=== PATIENT | female | born 1965 | race Two or more races ===

== ENCOUNTER 2018-12-08 12:52 | Inpatient (IN) | payer OTHER ==
[~2018-12-08] VITALS: Ht 170.2 cm; Wt 100.2 kg
[~2018-12-08 12:52] MED LIST: SILVER NITRATE APPLICATOR 1 EA BOX TP ONE
--- NOTE | 2018-12-08 13:00 | NUR ---
ADMISSION NOTE PT ARRIVED AT THIS TIME, BROUGHT IN BY WHEELCHAIR VIA SECURITY. PT IS A/O X4, BREATHING EVEN AND UNLABORED ON RA, NO S/S OF PAIN OR DISTRESS NOTED, IV IS PATENT AND INTACT, SAFETY PRECAUTIONS IN PLACE, CALL LIGHT WITHIN REACH, WILL MONITOR ACCORDINGLY.
[2018-12-08] MEDS ORDERED: MAGNESIUM HYDROXIDE 30 ML UDC PO PRN (15:30)
[2018-12-08] MEDS ORDERED: ACETAMINOPHEN 325 MG TABLET PO PRN (15:30)
[2018-12-08] MEDS ORDERED: Z GUARD REMEDY 2 OZ OINT TP PRN (15:30)
[2018-12-08] MEDS ORDERED: MAG HYDROX/AL HYDROX/SIMETH 30 ML UDC PO PRN (15:30)
[2018-12-08] MEDS ORDERED: ZOLPIDEM TARTRATE 5 MG TABLET PO PRN (15:30)
[2018-12-08] MEDS ORDERED: ONDANSETRON HCL/PF 4 MG/2 ML VIAL IVP PRN (15:30)
[2018-12-08 16:00] VITALS: BP 111/69
[2018-12-08] MEDS: IV NS 0.9% 1,000 ML IV PRN (17:36)
[2018-12-08] MEDS: PIPERACILLIN /TAZOBACTAM 4.5 G in IV D5W 50 ML IV SCH (17:46)
[2018-12-08] MEDS ORDERED: FEE PK DOSING 1 MIN EA MC ONE (18:06)
--- NOTE | 2018-12-08 18:20 | NUR ---
RN NOTE PT HAS BEEN VOMITING THE LAST HOUR AND HALF, HOSPITALIST DR. ALANA ZHANG MESSAGED AND HE ORDERED A ONE TIME DOSE OF ZOFRAN TO BE GIVEN AGAIN AT THIS TIME. ORDER IMPLEMENTED AND CARRIED OUT
[2018-12-08] MEDS ORDERED: ONDANSETRON HCL/PF 4 MG/2 ML VIAL IV ONE (18:30)
--- NOTE | 2018-12-08 18:43 | NUR ---
RN CLOSING NOTE PT IN BED AT LOWEST AND LOCKED POSITION WITH SIDE RAILS UP X2, A/OX4, BREATHING IS EVEN AND UNLABORED, PT IS CURRENTLY VOMITING AT THIS WITH MD AWARE AND ONE TIME DOSE OF ZOFRAN ORDERED AND GIVEN, PT WAS NOTED TO HAVE RIGHT BUTTOCK WOUND WITH WOUND CONSULT ORDERED, IV IS PATENT AND INTAC, SAFETY PRECAUTIONS IN PLACE, CALL LIGHT WITHIN REACH, ALL NEEDS ATTENDED TO, WILL ENDORSE TO AUTO GLASS WORKER RN FOR ULYSSES.
[2018-12-08] MEDS ORDERED: VANCOMYCIN 1.5 GM in IV NS 0.9% 500 ML IV ONE (19:00)
[2018-12-08] MEDS ORDERED: VANCOMYCIN 1.5 GM in IV D5W 500 ML IV ONE (19:00)
--- NOTE | 2018-12-08 19:50 | NUR ---
MS PILOT BOAT DECKHAND INITIAL NOTES SEEN PT AWAKE AND ALERT DX OF CELLULITIS COMPLAINING OF ABDOMINAL PAIN AND NAUSEA AND VOMITING. SHE STATED SHE GOT ZOFRAN BUT ITS DOESN'T WORKED. SHE ALSO STATES THAT SHE DOESN'T KNOW IF FROM THE [employer] "[employer]" THAT SHE ATE BEFORE SHE CAME HERE. OFFERED NORCO TABLET FOR HER PAIN OR MAALOX BUT SHE REFUSED IT .SHE WANTS A SHOT . I TOLD HER I WILL CALL THE BEATER HEAD MD TO LET THEM KNOW. NO SIGNS OF ANY ACUTE DISTRESS NOTED. STILL WITH IVF NS AT 75ML/HR.
--- NOTE | 2018-12-08 19:55 | NUR ---
MS LANE NOTES SPOKE TO DR HODGES TO LET HIM KNOW WHAT THE SITUATION AT THIS TIME. READ ALL THE LAB RESULT CAME FROM NOR GOT ORDERED NOTED AND CARRIED OUT. Addendum: 12/08/18 at 2305 by JEREMY MIJARES LVN FROM [facility]
[2018-12-08 20:00] VITALS: BP 155/70
[2018-12-08] MEDS ORDERED: METOCLOPRAMIDE HCL 10 MG/2 ML VIAL IV SCH (20:00)
--- NOTE | 2018-12-08 20:18 | NUR ---
MS ARIANA NOTES REGLAN GIVEN KING IVP ORDERED AND VANCOMYCIN IVP BAG STARTED . ENCOURAGED PT TO HAVE HOB ELEVATED ORDERED FOR ASPIRATION PRECAUTION. WILL CONTINUE MONITORING. PLACE CALL LIGHT AT REACH.
[2018-12-08] MEDS ORDERED: METOCLOPRAMIDE HCL 10 MG/2 ML VIAL IV PRN (20:30)
[2018-12-08] MEDS ORDERED: BENA20TA9 PO (20:31)
[2018-12-08] MEDS ORDERED: CLOP75TA15 PO (20:31)
[2018-12-08] MEDS ORDERED: METO50TA16 PO (20:31)
[2018-12-08] MEDS: HYDROCODONE/APAP 5/325MG 1 EACH TABLET PO PRN (20:34)
--- NOTE | 2018-12-08 20:34 | NUR ---
NUCLEAR INSTRUCTOR/NOTES NORCO TABLET GIVEN PER PT REQUESTED. NO N/V NOTED AT THIS TIME. WILL CONTINUE MONITORING.
[2018-12-08] MEDS ORDERED: GABA-534 PO (21:36)
[2018-12-08] MEDS ORDERED: ATOR80TA PO (21:36)
[2018-12-08] MEDS ORDERED: ASPI-1169 PO (21:36)
[2018-12-08] MEDS ORDERED: OMEG1CAP18 PO (21:36)
--- NOTE | 2018-12-08 21:38 | NUR ---
MS MEAT PRESS OPERATOR NOTES PT AWAKE AND ALERT STATES PAIN STILL THE SAME I ASK QUALITY OF PAIN SHE STATED "I DON'T KNOW, THIS IS THE FIRST TIME I'M HAVING THIS KIND OF ABDOMINAL PAIN. PT HAVING BOWEL MOVEMENT TOO, OFFERED MAALOX BUT SHE'S REFUSING AND INSTEAD ASKING FOR STRONG PAIN MEDICATION . I TOLD HER I WILL NOTIFY THE MD FOR HER CONCERNED.
--- NOTE | 2018-12-08 23:30 | NUR ---
MS ARIANA NOTES NOTIFIED KING FORBES TEXTING BY CHARGE NURSE , PATIENT STILL HAVING SEVERE ABDOMINAL PAIN CRYING OUT LOUD . NO SIGNS OF ANY ACUTE DISTRESS NOTED.
--- NOTE | 2018-12-09 00:15 | NUR ---
MS ARIANA NOTEES PT CALLED AGAIN AND STILL COMPLAINING ABDOMINAL PAIN ,STARTED FROM EPIGASTRIC MOVING ALL OVER HER ABDOMEN , SHE FEEL NAUSEA BUT NOTHING TO VOMIT AND SHE INSISTED AND SAYING SHE WANTS TO SEE A DOCTOR AND IF NO DOCTORS SHE WANTS TO SPEAK TO THE DISPLAY TRIMMER OR CHIP FRIER. CHARGED NURSE RUPA SPOKE TO HER TOO TO CALMED HER DOWN. OFFERED ANOTHER NORCO TO RELIEVED THE PAIN BUT PT REFUSING AND INSISTING SHE WANTS PAIN SHOT.
--- NOTE | 2018-12-09 00:20 | NUR ---
MS LANE NOTES NURSING MANAGER FRONT OFFICE BIRGIT SPOKE TO HER THEN NOTIFIED THE DOCTOR FOR PT CONCERN.
--- NOTE | 2018-12-09 00:45 | NUR ---
MS ARIANA NOTES' SPOKE TO DR HODGES AND HE ORDERED STAT KUB. NOTIFIED RADIOLOGY DEPT. WAITING FOR THE RESULT. ZOSYN IVP BAG HUNG BY ANOTHER NURSE ORDERED.
[2018-12-09] MEDS: PIPERACILLIN /TAZOBACTAM 4.5 G in IV D5W 50 ML IV SCH ×2 (01:03→05:58)
--- NOTE | 2018-12-09 02:25 | NUR ---
MS CUSTOMER GREETER NOTES NOTIFIED DR HODGES REGARDING THE RESULT OF KUB . WAITING FOR ORDERS.
--- NOTE | 2018-12-09 02:51 | NUR ---
MS PHOTOENGRAVING SKETCH MAKER NOTES PT CALLED AGAIN CRYING HOLDING HER ABDOMEN AND COMPLAINING OF SEVERE ABDOMINAL PAIN . NO N/V NOTED AT THIS TIME. OFFERED NORCO TABLET BUT SHE INSISTED TO HAVE STRONG PAIN MEDICATION TO KNOCK HER DOWN. SPOKE TO HER THAT I JUST CALLED AIRFRAME AND POWERPLANT MECHANIC MD TO LET HIM KNOW THE RESULT OF STAT KUB STILL WAITING FOR ORDER.
--- NOTE | 2018-12-09 03:00 | NUR ---
MS ARIANA NOTES DR HODGES CALLED BACK , READ THE RESULT OF KUB TO HIM AND TOLD HIM THAT PT STILL ON SEVERE ABDOMINAL PAIN BUT NO N/V AT THIS TIME. GOT ORDERED NOTED AND CARRIED
--- NOTE | 2018-12-09 03:18 | NUR ---
MS RN NOTES PAIN MANAGEMENT C/O UPPER MID ABDOMINAL PAIN,SCREAMING,CRYING,MEDICATED WITH MORPHINE 1MG IV X 1DOSE ORDERED FOR SEVERE PAIN.WILL MONITOR FOR RELIEF
[2018-12-09] MEDS ORDERED: MORPHINE SULFATE INJ 2 MG/ML DISP.SYRIN IV ONE (03:30)
--- NOTE | 2018-12-09 04:00 | NUR ---
MS BAGGAGE CLERK NOTES PT SLEEPING AT THIS TIME AFTER MORPHINE GIVEN ORDERED. IVF NS AT 75ML/HR STILL INFUSING . KEPT HER WARM AND COMFORTABLE AT ALL TIMES. WILL CONTINUE MONITORING. PLACE CALL LIGHT AT REACH.
[2018-12-09] MEDS ORDERED: LIDOCAINE 1%-EPI 1:200,000 SDV 10 ML VIAL IJ ONE (05:00)
--- NOTE | 2018-12-09 06:08 | NUR ---
MS ARIANA NOTES PT WOKE UP WHILE HUNG THE ZOSYN IVP BAG BY ANOTHER NURSE. MRSA SWAB ALSO DONE. PT ASKING FOR ICE CHIPS , TALKED TO HER THAT SHE NEEDS TO BE NPO BECAUSE OF HER CT OF ABDOMEN /PELVIS WITHOUT CONTRAST AND IF SHE'S GETTING ICE CHIPS NOW ,POSSIBLE IT WILL TRIGGER HER ABDOMINAL PAIN AND N/V WELL. PT UNDERSTOOD WELL AND SHE JUST CLOSED HER EYES. KEPT HER WARM AND COMFORTABLE AT ALL TIMES. PLACE CALL LIGHT AT REACH.
--- NOTE | 2018-12-09 07:00 | NUR ---
MS RN NOTES PATIENT IN BED ALERT ORIENTED X 4. NO ACUTE DISTRESS NOTED. BREATHING UNLABORED. NO SOB NOTED. IV ACCESS PATENT AND INTACT, NO REDNESS OR SWELLING NOTED. SAFETY MEASURES IN PLACE. CALL LIGHT WITHIN REACH. WILL CONTINUE TO MONITOR ACCORDINGLY.
[2018-12-09 07:10] LABS: BASOPHILS % (AUTO) 0.2 % (0.0-2.0); EOSINOPHILS % (AUTO) 0.2 % (0.0-6.0); HEMATOCRIT 35 % (33-45); HEMOGLOBIN 11.9 g/dL (11.5-14.8); LYMPHOCYTES % (AUTO) 6.2 % (20.0-44.0); MEAN CORPUSCULAR HGB CONC 34 g/dl (31.0-36.0); MEAN CORPUSCULAR VOLUME 98 fL (82-100); MONOCYTES # (AUTO) 1.6 /CMM (0.1-1.30); MONOCYTES % (AUTO) 9.3 % (2.0-12.0); NEUTROPHILS # (AUTO) 14.2 /CMM (1.8-8.9); NEUTROPHILS % (AUTO) 84.1 % (43.0-81.0); PLATELET COUNT (AUTO) 275 /CMM (150-450); RED BLOOD CELL COUNT(AUTO) 3.59 MIL/uL (4.0-5.2); WHITE BLOOD COUNT (AUTO) 16.9 K/uL (4.3-11.0)
--- NOTE | 2018-12-09 07:15 | NUR ---
WOUND CARE CONSULT WOUND CARE RECEIVED CONSULT FOR RIGHT BUTTOCK ABSCESS. WOUND CARE WILL DEFER CONSULT AND TREATMENT PLANS TO PLASTIC SURGICAL TEAM WHO ARE CURRENTLY FOLLOWING. PATIENT WITH EPIFANIO AT 22, WILL SEE PRN.
[2018-12-09 07:20] LABS: CALCIUM, SERUM 8.4 mg/dL (8.5-10.1); CREATININE 0.9 mg/dL (0.6-1.3)
[2018-12-09 07:26] LABS: THYROID STIMULATING HORMONE 0.77 uIU/mL (0.358-3.74)
--- NOTE | 2018-12-09 07:26 | NUR ---
MS SCREEN PRINTING EQUIPMENT SETTER CLOSING NOTES PT BACK TO REST AFTER MORNING CARE DOEN SHE WILL ABLE TO AMBULATE NOW. NO SIGNS OF ANY DISCOMFORT OR ANY ACUTE DISTRESS NOTED AT THIS TIME. ALL DUE MEDS GIVEN AND ALL NEEDS MET. CALMED HER DOWN AFTER MORPHINE 1 MG GIVEN EARLIER. NO N/V NOTED WELL. IVF NA AT 75ML/HR STILL INFUSING . KEPT HER WARM AND COMFORTABLE AT ALL TIMES. PLACE CALL LIGHT AT REACH .ENDORSE TO AM NURSE FOR CONTINUITY OF CARE.
[2018-12-09 07:51] LABS: POTASSIUM 2.8 mmol/L (3.5-5.1)
[2018-12-09 08:00] VITALS: BP 144/70
[2018-12-09] MEDS: VANCOMYCIN 1 GM in IV D5W 250 ML IV SCH ×2 (08:22→20:07)
[2018-12-09] MEDS ORDERED: POTASSIUM CL. PREMIX PERIPHER. 50 ML IV SCH (10:00)
--- NOTE | 2018-12-09 10:49 | NUR ---
MS RN NOTES NOTIFIED DR ALANA NIELSEN REGARDING CT OF ABDOMEN PELVIS RESULT WITH ORDERS TO CHANGE DIET TO CLEAR LIQUID AND NOTIFY ALSO DR YOU REGARDING RESULT, NOTED AND CARRIED OUT. PATIENT REFUSED POTASSIUM IV ADMINISTRATION DESPITE OF EXPLANATION OF RISK AND BENEFITS , DR ALANA NIELSEN MADE AWARE WITH ORDERS TO CHANGE TO POTASSIUM BY MOUTH, NOTED AND CARRIED OUT.
[2018-12-09] MEDS ORDERED: POTASSIUM CHLORIDE 20 MEQ POWDER PACKET PO ONE (11:00)
[2018-12-09] MEDS: PIPERACILLIN /TAZOBACTAM 3.375 G in IV D5W 100 ML IV SCH ×2 (13:54→21:04)
--- NOTE | 2018-12-09 14:40 | NUR ---
MS RN NOTES SPOKE WITH DR LAGUNA AWARE OF CT OF ABDOMEN PELVIS RESULT WITH NO NEW ORDERS MADE AT THIS TIME.
[2018-12-09] MEDS: GABAPENTIN 300 MG CAPSULE PO SCH (15:07)
[2018-12-09] MEDS: CLOPIDOGREL BISULFATE 75 MG TABLET PO SCH (15:07)
[2018-12-09] MEDS: ASPIRIN 81 MG TAB.CHEW PO SCH (15:07)
[2018-12-09] MEDS: BENAZEPRIL HCL 20 MG TABLET PO SCH (15:08)
[2018-12-09] MEDS: METOPROLOL TARTRATE 50 MG TABLET PO SCH ×2 (15:09→17:00)
[2018-12-09 16:00] VITALS: BP 147/84
[2018-12-09] MEDS: HYDROCODONE/APAP 5/325MG 1 EACH TABLET PO PRN (16:04)
--- NOTE | 2018-12-09 19:00 | NUR ---
MS RN NOTES PATIENT IN BED ALERT ORIENTED X 4. NO ACUTE DISTRESS NOTED. BREATHING UNLABORED. NO SOB NOTED. DENIED ANY PAIN. IV ACCESS PATENT AND INTACT, NO REDNESS OR SWELLING NOTED. DUE MEDICATIONS GIVEN NO ASE. NEEDS ATTENDED AND ANTICIPATED. KEPT CLEAN DRY AND COMFORTABLE. SAFETY MEASURES IN PLACE. CALL LIGHT WITHIN REACH. ENDORSED TO NIGHT NURSE FOR CONTINUITY OF CARE.
--- NOTE | 2018-12-09 19:43 | NUR ---
MS RN OPENING NOTES: RECEIVED PT ON ROOM AIR AND IS TOLERATING WELL. PT ASLEEP AT THIS TIME AND RESTING COMFORTABLY. PT HAS IV ON L HAND #20G AND ANOTHER ON HER R WRIST #22G. BOTH PATENT. PT DISCONNECTED FROM IV FLUIDS AT THIS TIME. WILL CONNECT PT TO IV NS AT 75ML/HR. BED KEPT IN LOW, LOCKED POSITION, AND SIDE RAILS X 2UP. WILL CONTINUE TO MONITOR PT.
[2018-12-09 20:21] VITALS: BP 126/78
[2018-12-09] MEDS: ATORVASTATIN 40 MG TABLET PO SCH (21:04)
[2018-12-10] MEDS: HYDROCODONE/APAP 5/325MG 1 EACH TABLET PO PRN ×2 (00:06→20:22)
[2018-12-10] MEDS: PIPERACILLIN /TAZOBACTAM 3.375 G in IV D5W 100 ML IV SCH ×3 (04:15→21:44)
--- NOTE | 2018-12-10 06:52 | NUR ---
MS RN CLOSING NOTES: ALL NEEDS WERE ATTENDED AND ANTICIPATED FOR. PT KEPT CLEAN, DRY, AND COMFORTABLE. PT HAS IV ON R WRIST #22G AND IS BEING INFUSED WITH ZOSYN AT 25ML/HR. PT HAS ANOTHER IV AT L HAND #20G. PT ASLEEP AT THIS TIME AND RESTING COMFORTABLY. BED KEPT IN LOW, LOCKED POSITION, AND SIDE RAILS X 2UP. WOUND TX PERFORMED ORDERED. WILL ENDORSE TO AM NURSE FOR ULYSSES.
--- NOTE | 2018-12-10 07:35 | NUR ---
MS/RN OPENING NOTES RECEIVED PT ON ROOM AIR AND IS TOLERATING WELL. PT DENIES PAIN AT THIS TIME. PT HAS NO SIGNS OF RESPIRATORY DISTRESS OR SHORTNESS OF BREATH. PT HAS IV ON L HAND 20G AND ANOTHER ON R WRIST 22G. BOTH IV'S ARE PATENT. IV FLUIDS RUNNING AT NS 75 ML/HRS. SAFETY PRECAUTIONS IMPLEMENTED. BED KEPT IN LOW, LOCKED POSITION, AND SIDE RAILS UP 2X. WILL CONTINUE TO MONITOR PT.
[2018-12-10 08:00] VITALS: BP_SYST 121; BP_SYST 122; BP_SYST 95; BP_DIAS 67; BP_DIAS 69; BP_DIAS 94
[2018-12-10 08:34] LABS: BASOPHILS % (AUTO) 0.2 % (0.0-2.0); EOSINOPHILS % (AUTO) 0.3 % (0.0-6.0); HEMATOCRIT 36 % (33-45); HEMOGLOBIN 11.7 g/dL (11.5-14.8); LYMPHOCYTES # (AUTO) 1.2 /CMM (0.8-4.8); LYMPHOCYTES % (AUTO) 6.2 % (20.0-44.0); MEAN CORPUSCULAR HGB CONC 33 g/dl (31.0-36.0); MEAN CORPUSCULAR VOLUME 99 fL (82-100); MONOCYTES # (AUTO) 1.5 /CMM (0.1-1.30); MONOCYTES % (AUTO) 7.6 % (2.0-12.0); NEUTROPHILS # (AUTO) 16.6 /CMM (1.8-8.9); NEUTROPHILS % (AUTO) 85.7 % (43.0-81.0); PLATELET COUNT (AUTO) 320 /CMM (150-450); RED BLOOD CELL COUNT(AUTO) 3.59 MIL/uL (4.0-5.2); WHITE BLOOD COUNT (AUTO) 19.4 K/uL (4.3-11.0)
[2018-12-10] MEDS: METOPROLOL TARTRATE 50 MG TABLET PO SCH ×2 (08:57→17:47)
[2018-12-10] MEDS: GABAPENTIN 300 MG CAPSULE PO SCH (08:58)
[2018-12-10] MEDS: BENAZEPRIL HCL 20 MG TABLET PO SCH (08:58)
[2018-12-10] MEDS: ASPIRIN 81 MG TAB.CHEW PO SCH (08:58)
[2018-12-10] MEDS: CLOPIDOGREL BISULFATE 75 MG TABLET PO SCH (08:58)
[2018-12-10 08:59] LABS: CALCIUM, SERUM 8.5 mg/dL (8.5-10.1)
[2018-12-10 09:55] LABS: BAND % (MANUAL) 12 % (0.0-5.0); LYMPHOCYTES % (MANUAL) 8 % (16-48); MONOCYTES % (MANUAL) 8 % (0-11.0); NEUTROPHILS % (MANUAL) 72 (42-76)
[2018-12-10] MEDS: VANCOMYCIN 1 GM in IV D5W 250 ML IV SCH (11:05)
[2018-12-10] MEDS: IV NS 0.9% 1,000 ML IV PRN (12:41)
--- NOTE | 2018-12-10 15:47 | NUR ---
MS/RN NOTE TEMP IS 99.9 AND TYLENOL 650 MG PO IS GIVEN. WILL CONTINUE TO MONITOR.
[2018-12-10] MEDS: POTASSIUM CHLORIDE 20 MEQ TAB.PRT.SR PO SCH ×3 (15:50→18:42)
[2018-12-10 16:00] VITALS: BP 118/67
--- NOTE | 2018-12-10 16:20 | NUR ---
MS/RN NOTE TEMP IS 98.9.
[2018-12-10 18:00] VITALS: BP 131/72
--- NOTE | 2018-12-10 18:16 | NUR ---
MS/RN NOTE RECEIVED ORDER FROM DR ALANA Rao FOR GAPAPENTIN 300 MG PO QHS PRN. READ BACK, VERIFIED. NOTED AND CARRIED OUT.
--- NOTE | 2018-12-10 18:31 | NUR ---
MS/RN NOTE THE PATIENT ALERT AND ORIENTED X4. IN ROOM AIR AND DENIES SOB. RESPIRATION REGULAR AND UNLABORED. DENIES PAIN. LFA G 22 PATENT AND NORMAL SALINE INFUSING AT 75ML/HR. NO S/S INFILTRATION NOTED. BED LOW AND LOCKED. SIDE RAILS UP X3. CALL LIGHT WITHIN REACH. WILL ENDORSE TO IN STORE BANKER.
[2018-12-10 20:00] VITALS: BP 108/71
--- NOTE | 2018-12-10 20:00 | NUR ---
RN NOTES PATIENT IS ALERT AND ORIENTED X4, STABLE ON ROOM AIR, COMPLAINING OF PAIN TO RIGHT BUTTOCKS DUE TO CELLULITIS, AND ABDOMINAL PAIN, CONTINENT OF BOWEL AND BLADDER, AMBULATES TO THE TOILET, ON CLEAR LIQUID DIET DUE TO GALLSTONE, KEPT SAFE, CALL LIGHT WITHIN REACH.
[2018-12-10] MEDS: VANCOMYCIN 1.25 GM in IV D5W 500 ML IV SCH (20:28)
[2018-12-10] MEDS: ATORVASTATIN 40 MG TABLET PO SCH (21:59)
[2018-12-10 22:40] LABS: APPEARANCE,URINE CLEAR (CLEAR); BILIRUBIN,URINE NEGATIVE (NEGATIVE); BLOOD, URINE TRACE Ery/uL (NEGATIVE); COLOR,URINE YELLOW (YELLOW); KETONES,URINE NEGATIVE (NEGATIVE); LEUKOCYTE ESTERASE ,URINE NEGATIVE (NEGATIVE); NITRITE, URINE NEGATIVE (NEGATIVE); PH,URINE 6.5 (5.0-8.0); PROTEIN,URINE NEGATIVE (NEGATIVE); UGLUCOSE NEGATIVE (NEGATIVE); UROBILINOGEN,URINE 0.2 EU/dL (0.2)
[2018-12-10] MEDS: GABAPENTIN 300 MG CAPSULE PO PRN (23:00)
[2018-12-10 23:04] LABS: BACTERIA,URINE Few /HPF (None Seen); SQUAMOUS EPITHELIAL CELL,UR Few /HPF (None Seen); WBC,URINE 0-2 /HPF (0-3)
[2018-12-11] MEDS: PIPERACILLIN /TAZOBACTAM 3.375 G in IV D5W 100 ML IV SCH ×3 (05:16→20:31)
[2018-12-11] MEDS: HYDROCODONE/APAP 5/325MG 1 EACH TABLET PO PRN ×3 (05:30→21:07)
--- NOTE | 2018-12-11 06:51 | NUR ---
RN NOTES PM SHIFT PATIENT IS ALERT AND ORIENTED X4, GIVEN NORCO X2 FOR BUTTOCK PAIN, CHANGED DRESSING X4, RIGHT BUTTOCK WOUND MOIST, CLEAN, WITH SMALL DRAINAGE, VANCOMYCIN, ZOSYN GIVEN, CLEAR LIQUID DIET, COMPLIANT WITH TX AND MEDICATIONS, BLOOD CX, URINE CX AND WOUND CX TAKEN, FOLLOW UP RESULTS
[2018-12-11 07:21] LABS: BASOPHILS % (AUTO) 0.1 % (0.0-2.0); EOSINOPHILS % (AUTO) 0.8 % (0.0-6.0); HEMATOCRIT 34 % (33-45); HEMOGLOBIN 11.2 g/dL (11.5-14.8); LYMPHOCYTES # (AUTO) 1.4 /CMM (0.8-4.8); MEAN CORPUSCULAR HGB CONC 33 g/dl (31.0-36.0); MEAN CORPUSCULAR VOLUME 99 fL (82-100); MONOCYTES # (AUTO) 0.9 /CMM (0.1-1.30); MONOCYTES % (AUTO) 5.4 % (2.0-12.0); NEUTROPHILS # (AUTO) 14.9 /CMM (1.8-8.9); NEUTROPHILS % (AUTO) 85.7 % (43.0-81.0); PLATELET COUNT (AUTO) 378 /CMM (150-450); RED BLOOD CELL COUNT(AUTO) 3.43 MIL/uL (4.0-5.2); WHITE BLOOD COUNT (AUTO) 17.4 K/uL (4.3-11.0)
[2018-12-11 07:39] LABS: CALCIUM, SERUM 8.3 mg/dL (8.5-10.1); CREATININE 0.9 mg/dL (0.6-1.3); POTASSIUM 3.7 mmol/L (3.5-5.1)
[2018-12-11 08:00] VITALS: BP 126/69
--- NOTE | 2018-12-11 08:01 | NUR ---
RN OPENING NOTES RECEIVED PATIENT AWAKE IN BED. ALERT AND ORIENTED X4. PATIENT HAS NO SIGNS OF RESPIRATORY DISTRESS. NO SIGNS OF SHORTNESS OF BREATH. IV SITES: LEFT FOREARM G#22 RUNNING NS @75 ML/HR, PATENT AND NO SIGNS OF INFILTRATION. PATIENT HAS NO PAIN AT THIS TIME. SAFETY PRECAUTIONS IN PLACE. BED IN LOWEST POSITION, CALL LIGHT WITHIN REACH, SIDE RAILS UP X2. WILL CONTINUE TO MONITOR.
[2018-12-11] MEDS: BENAZEPRIL HCL 20 MG TABLET PO SCH (08:36)
[2018-12-11] MEDS: METOPROLOL TARTRATE 50 MG TABLET PO SCH ×2 (08:37→17:04)
[2018-12-11] MEDS: ASPIRIN 81 MG TAB.CHEW PO SCH (08:37)
[2018-12-11] MEDS: CLOPIDOGREL BISULFATE 75 MG TABLET PO SCH (08:37)
[2018-12-11] MEDS: GABAPENTIN 300 MG CAPSULE PO SCH (08:38)
[2018-12-11] MEDS: VANCOMYCIN 1.25 GM in IV D5W 500 ML IV SCH ×2 (10:46→22:06)
[2018-12-11 16:00] VITALS: BP 121/76
[2018-12-11 17:29] VITALS: BP 121/76
--- NOTE | 2018-12-11 18:35 | NUR ---
MS RN CLOSING NOTES PATIENT IS ALERT AND ORIENTED X4. NORCO WAS GIVEN FOR PAIN. DRESSING CHANGED. RIGHT BUTTOCK WOUND MOIST, CLEAN, WITH SMALL DRAINAGE. ALL MEDICATIONS GIVEN. SAFETY PRECAUTIONS IN PLACE. CALL LIGHT WITHIN REACH, SIDERAILS UP X2, BED LOCKED. WILL ENDORSE TO ONCOMING SHIFT.
--- NOTE | 2018-12-11 20:00 | NUR ---
RN NOTES RECEIVED PATIENT IN BED, ALERT AND ORIENTED X4, COMPLAINING OF RIGHT BUTTOCK PAIN DUE TO CELLULITIS, NO RESPIRATORY DISTRESS, FIRST DRESSING CHANGE OF THE SHIFT PERFORMED, RIGHT BUTTOCK OPEN WOUND HAS SMALL DRAINAGE, CLEAN AND MOIST. ON KRISTYN AND BRODY
[2018-12-11] MEDS: GABAPENTIN 300 MG CAPSULE PO PRN (20:03)
[2018-12-11 21:02] VITALS: BP 119/75
[2018-12-11] MEDS: ATORVASTATIN 40 MG TABLET PO SCH (21:06)
[2018-12-11 22:00] VITALS: BP 119/75
[2018-12-12] MEDS: PIPERACILLIN /TAZOBACTAM 3.375 G in IV D5W 100 ML IV SCH ×2 (04:54→13:17)
[2018-12-12 06:17] LABS: BASOPHILS # (AUTO) 0.1 /CMM (0.0-0.2); BASOPHILS % (AUTO) 0.6 % (0.0-2.0); EOSINOPHILS % (AUTO) 1.1 % (0.0-6.0); HEMATOCRIT 34 % (33-45); HEMOGLOBIN 11.3 g/dL (11.5-14.8); LYMPHOCYTES # (AUTO) 1.5 /CMM (0.8-4.8); LYMPHOCYTES % (AUTO) 9.8 % (20.0-44.0); MEAN CORPUSCULAR HGB CONC 33 g/dl (31.0-36.0); MEAN CORPUSCULAR VOLUME 99 fL (82-100); MONOCYTES # (AUTO) 0.8 /CMM (0.1-1.30); NEUTROPHILS # (AUTO) 12.8 /CMM (1.8-8.9); NEUTROPHILS % (AUTO) 83.5 % (43.0-81.0); PLATELET COUNT (AUTO) 437 /CMM (150-450); RED BLOOD CELL COUNT(AUTO) 3.44 MIL/uL (4.0-5.2); WHITE BLOOD COUNT (AUTO) 15.3 K/uL (4.3-11.0)
[2018-12-12 06:34] LABS: ALBUMIN 1.9 g/dL (3.4-5.0); BILIRUBIN,DIRECT 0.2 mg/dL (0.0-0.2); BILIRUBIN,TOTAL 0.5 mg/dL (0.2-1.0); TOTAL PROTEIN, SERUM 6.5 g/dL (6.4-8.2)
--- NOTE | 2018-12-12 06:34 | NUR ---
RN NOTES PM SHIFT PATIENT IS ALERT AND ORIENTED X4, COMPLAINING OF RIGHT BUTTOCK PAIN DUE TO CELLULITIS, ABDOMINAL DISCOMFORT, PER CT CHOLELITHIASIS, CLEAR LIQUID DIET, TOLERATING FLUIDS, NO VOMITING, GIVEN NEURONTIN AND NORCO FOR PAIN WITH GOOD RELIEF, CONTINUE ZOSYN AND VANCOMYCIN, WOUND CARE.
[2018-12-12 06:37] LABS: CALCIUM, SERUM 8.4 mg/dL (8.5-10.1); CREATININE 0.9 mg/dL (0.6-1.3); MAGNESIUM 2.1 mg/dL (1.8-2.4); PHOSPHORUS 3.9 mg/dL (2.5-4.9); POTASSIUM 3.3 mmol/L (3.5-5.1)
[2018-12-12 08:00] VITALS: BP 112/78
--- NOTE | 2018-12-12 08:00 | NUR ---
RN NOTES RECEIVED PATIENT IN THE BED A/O X4, PATIENT HAS NO ACUTE RESPIRATORY DISTRESS, V/S STABLE. PATIENT WAS COMPLAINING OF PAIN ON RIGHT BUTTOCK AREA , SCHEDULED MEDICATION ADMINISTERED. V/S STABLE. INFUSING NS AT 75 ML/HR IN LEFT FA INTACT. PATIENT USING BATHROOM, SAFETY PRECAUTION MAINTAINED ALL THE TIME.
[2018-12-12] MEDS: ASPIRIN 81 MG TAB.CHEW PO SCH (08:30)
[2018-12-12] MEDS: METOPROLOL TARTRATE 50 MG TABLET PO SCH ×2 (08:30→17:05)
[2018-12-12] MEDS: GABAPENTIN 300 MG CAPSULE PO SCH (08:30)
[2018-12-12] MEDS: CLOPIDOGREL BISULFATE 75 MG TABLET PO SCH (08:30)
[2018-12-12] MEDS: HYDROCODONE/APAP 5/325MG 1 EACH TABLET PO PRN ×2 (08:32→17:51)
--- NOTE | 2018-12-12 08:32 | NUR ---
Rn notes Administered narco 5/325 mg po prn for pain in wound located sacral area per patient request, v/s taken bp-112/78, p-80, continued monitoring.
[2018-12-12] MEDS: VANCOMYCIN 1.25 GM in IV D5W 500 ML IV SCH ×2 (08:59→19:57)
[2018-12-12] MEDS: BENAZEPRIL HCL 20 MG TABLET PO SCH (11:12)
[2018-12-12] MEDS ORDERED: POTASSIUM CL. PREMIX PERIPHER. 50 ML IV SCH (11:23)
[2018-12-12] MEDS ORDERED: POTASSIUM CHLORIDE 20 MEQ TAB.PRT.SR PO SCH (11:30)
[2018-12-12] MEDS ORDERED: POTASSIUM CHLORIDE 20 MEQ TAB.PRT.SR PO ONE (13:30)
--- NOTE | 2018-12-12 14:00 | NUR ---
RN NOTES PATIENT IN THE BED STABLE, DRESSING CHANGED, PATIENT GOING TO D/C HOME WITH HOME HEALT, AND CONTINUED IV VANCOMYCIN X7 DAYS, , FOLLOW PRIMARY MD, PER Dr LOPEZ ORDER. CONTINUED MONITORING
[2018-12-12 16:00] VITALS: BP 116/75
--- NOTE | 2018-12-12 17:51 | NUR ---
Rn notes administered narco 5/325 mg po prn for right buttock pain 03/20 per patient request, v/s taken bp 116/75, p-77, continued monitoring.
--- NOTE | 2018-12-12 18:30 | NUR ---
RN NOTES SCHEDULED MEDICATION ADMINISTERED, DISCHARGE PAPERWORK DONE. MEDICATION WERE ADMINISTERED FOR PAIN EFFECTIVE. PATIENT STABLE. MIDLINE ON RIGHT UA INTACT. ENDORSED ONCOMING NURSE FOR PLAN OF CARE.
--- NOTE | 2018-12-12 19:30 | NUR ---
MS/RN RECEIVE PATIENT AWAKE, ALERT, ORIENTED, COMFORTABLE, NO C/O PAIN, NO DISTRESS NOTED, CALL LIGHT IN REACH. PATIENT WILL BE DISCHARGED HOME TONIGHT AFTER VANCOMYCIN ANTIBIOTIC IS FINISHED PER DAY SHIFT RN ENDORSEMENT. WILL MONITOR.
[2018-12-12 20:00] VITALS: BP 109/75
[2018-12-12] MEDS: ATORVASTATIN 40 MG TABLET PO SCH (22:00)
--- NOTE | 2018-12-12 22:11 | NUR ---
MS/RN VANCOMYCIN FINISHED, NO REACTIONS NOTED, D/C INSTRUCTIONS REITERATED TO THE PATIENT, VERBALIZED UNDERSTANDING, PATIENT WAS BROUGHT DOWN BY THE FRUIT HARVESTER BY WHEELCHAIR TO THE LOBBY IN STABLE CONDITION.
--- NOTE | 2018-12-12 22:13 | NUR ---
MS/RN BELONGINGS AND MEDICATIONS RETURNED, PLASTIC BAGS WERE OPENED IN FRONT OF THE PATIENT. Addendum: 12/12/18 at 2225 by JORGE AVILA RN MS/RN PATIENT WAS ACCOMPANIED BY HER FRIEND.
== END 2018-12-12 22:10 | disposition home health service (06) | DRG 383 ==
LOC: TELE 12:52 → MED 13:32
PROC: 0JB90ZZ Excision of Buttock Subcutaneous Tissue and Fascia, Open Approach (ICD-10-PCS; principal; 2018-12-09)
PROC: 05H533Z Insertion of Infusion Device into Right Subclavian Vein, Percutaneous Approach (ICD-10-PCS; 2018-12-12)
DX: L03.317 Cellulitis of buttock (principal); B95.62 Methicillin resistant Staphylococcus aureus infection as the cause of diseases classified elsewhere; E66.9 Obesity, unspecified; L02.31 Cutaneous abscess of buttock; I25.10 Atherosclerotic heart disease of native coronary artery without angina pectoris; I10 Essential (primary) hypertension; I25.2 Old myocardial infarction; Z68.34 Body mass index [BMI] 34.0-34.9, adult; F17.210 Nicotine dependence, cigarettes, uncomplicated; Z95.5 Presence of coronary angioplasty implant and graft; E78.5 Hyperlipidemia, unspecified; K80.20 Calculus of gallbladder without cholecystitis without obstruction; R73.9 Hyperglycemia, unspecified
CPT/HCPCS: 36415; 36569; 74018; 80048-TC; 80061-TC; 80076-TC; 80202-TC; 81000-TC; 82565-TC; 83605-TC; 83735-TC; 84100-TC; 84443-TC; 85025-TC; 87040-TC; 87070-TC; 87081-TC; 87086-TC; A6253; A6402; A6403; A6407; G0378; J2270; J2405; J2543; J2765; J3370; J3480; J3490; J7030; J7040; J7060